=== PATIENT | male | born 1960 | race Caucasian/White ===

== ENCOUNTER → 2017-03-08 | Outpatient (REF) ==
[~2017-03-08] MED LIST: ACIPHEX PO; ACIPHEX20 MG PO; ALTACE 10MG TAB10 MG PO; ALTACE10 MG PO; AMOXICILLIN 50500 MG PO; ASPIR-LOW81 MG PO; ASPIRIN E.C. 8181 MG PO; CLOPIDOGREL PO; EPIPEN 2-PAK1 MG/ML IM; LASIX 20MG TABL20 MG PO; PLAVIX 75MG TAB75 MG PO; PREDNISONE20 MG PO; PRILOSEC 20MG20 MG PO; PRILOSEC10 MG PO; VICODIN 5/5001 UDTAB PO; VYTORIN 10 MG-41 TAB PO; VYTORIN PO
[2017-03-08 19:40] LABS: THYROID STIMULATING HORMONE 2.53 uIU/mL (0.465-4.680)
[2017-03-08 20:23] LABS: PSA-TOTAL 0.63 ng/mL (0-4)
== END ==
LOC: ZLAB.WCH 18:32
PROVIDERS: Internal Medicine
DX: Z12.5 Encounter for screening for malignant neoplasm of prostate (principal)
CPT/HCPCS: G0103

== ENCOUNTER 2018-06-27 21:32 | Emergency (ER) | payer OTHER ==
[~2018-06-27] VITALS: Ht 188 cm; Wt 118.2 kg
[2018-06-27 21:34] VITALS: BP 127/83; TEMP 98
[2018-06-27] MEDS ORDERED: ATIVAN 1MG T1 MG/TAB PO (23:03)
[2018-06-27 23:15] VITALS: PULSE 75
== END 2018-06-27 23:15 | disposition home or self-care (01) ==
LOC: COL.ER 21:32
DX: M54.5 Low back pain (principal); I10 Essential (primary) hypertension; G89.29 Other chronic pain; Z79.02 Long term (current) use of antithrombotics/antiplatelets; Z79.82 Long term (current) use of aspirin
CPT/HCPCS: J1170; J1885; J2060

== ENCOUNTER → 2020-11-19 | Outpatient (REF) ==
[~2020-11-19] MED LIST changes: +ANTIVERT 25MG25 MG PO; +ASPIRIN 81M81 MG/TA2 PO; +ATIVAN 1MG T1 MG/TAB PO; +NEXAVAR200 M1 PO; +NEXIUM 20MG20 MG PO
== END ==
LOC: COL.CARD 09:51
DX: Z01.810 Encounter for preprocedural cardiovascular examination (principal)

== ENCOUNTER 2020-12-26 16:29 | Emergency (ER) | payer BC ==
[~2020-12-26] VITALS: Ht 188 cm; Wt 109.1 kg
[~2020-12-26 16:29] MED LIST changes: -ANTIVERT 25MG25 MG PO; -ASPIRIN 81M81 MG/TA2 PO; -NEXAVAR200 M1 PO; -NEXIUM 20MG20 MG PO
[2020-12-26 16:44] VITALS: TEMP 98.1
[2020-12-26 17:18] LABS: BASO # 0.1 K/mm3 (0.0-0.2); BASO % 0.9 % (0.0-2.0); EOS # 0.1 K/mm3 (0.0-0.7); GRAN # 6.6 K/mm3 (1.4-6.5); GRAN % 63.3 % (42.2-75.2); HEMOGLOBIN 17.3 g/dl (13.5-18.0); LYMPH # 2.5 K/mm3 (1.2-3.4); LYMPH % 24.3 % (20.0-51.0); MEAN CELL VOLUME 84 fl (80.0-100.0); MEAN CORPUSCULAR HEMOGLOBIN 29 pg (27.0-31.0); MEAN CORPUSCULAR HGB CONC 35 g/dl (33.0-37.0); MEAN PLATELET VOLUME 9.7 fl (7.4-10.4); MONO % 10.1 % (1.7-9.3); PLATELET COUNT 256 K/mm3 (130-400); RED BLOOD COUNT 5.95 M/mm3 (4.20-5.60); REDCELL DISTRIBUTION WIDTH-CV 13.3 % (11.5-14.5)
[2020-12-26 17:24] LABS: INR 1.2 (0.8-3.0); PROTHROMBIN TIME 13.2 SECONDS (9.7-12.8)
[2020-12-26 17:26] LABS: PARTIAL THROMBOPLASTIN TIME 29.7 SECONDS (26.0-37.0)
[2020-12-26 17:30] LABS: ALBUMIN 4.1 gm/dL (3.4-4.8); BILIRUBIN,TOTAL 1.1 mg/dL (0.2-1.2); CALCIUM 9.2 mg/dL (8.4-10.2); CREATININE, serum 0.96 mg/dL (0.72-1.25); TOTAL PROTEIN 7.2 gm/dL (6.2-8.1)
[2020-12-26 17:36] LABS: TROPONIN-I 0.012 ng/mL (0.00-0.033)
[2020-12-26] MEDS ORDERED: PLAVIX 75MG TAB75 MG PO (17:39)
[2020-12-26] MEDS ORDERED: VYTORIN 10 MG-41 TAB PO (17:40)
[2020-12-26] MEDS ORDERED: ALTACE 10MG TAB10 MG PO (17:40)
[2020-12-26] MEDS ORDERED: NEXAVAR200 M1 PO (17:41)
[2020-12-26] MEDS ORDERED: NEXIUM 20MG20 MG PO (17:41)
[2020-12-26] MEDS ORDERED: ASPIRIN 81M81 MG/TA2 PO (17:42)
[2020-12-26] MEDS ORDERED: ANTIVERT 25MG25 MG PO (18:09)
[2020-12-26 18:15] VITALS: BP 146/89; PULSE 75
== END 2020-12-26 18:15 | disposition home or self-care (01) ==
LOC: COL.ER 16:29
PROVIDERS: Emergency Medicine
DX: R42 Dizziness and giddiness (principal); I10 Essential (primary) hypertension; E78.5 Hyperlipidemia, unspecified; Z86.73 Personal history of transient ischemic attack (TIA), and cerebral infarction without residual deficits; Z79.02 Long term (current) use of antithrombotics/antiplatelets; Z79.899 Other long term (current) drug therapy
CPT/HCPCS: J7030